=== PATIENT | male | born 1980 | race African-American/Black ===

== ENCOUNTER 2018-07-15 09:41 | Emergency (ER) | payer OTHER ==
[2018-07-15 09:48] VITALS: BP 146/84; PULSE 90; RESP 18; TEMP 98.2
[2018-07-15] MEDS ORDERED: PROPARACAINE 0.5% OPHTH DROPS 15 ML BTL RIGHT EYE STA (10:05)
--- NOTE | 2018-07-15 10:22 | ED ---
Eye Problem HPI - General Chief complaint: Eye Problems Stated complaint: eye injury-[facility] Time Seen by Provider: 07/15/18 09:57 Source: patient Mode of arrival: ambulatory Limitations: no limitations - History of Present Illness Initial comments: 38-year-old male with past history of left retinal detachment presenting today for chief complaint of injury to left eye. 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 Patient denies loss of consciousness. Patient denies foreign body sensation. Patient states he is a slight discomfort and blurring the left eye. Patient has any flash of light, floaters, creatinine revealing of the vision. He denies any vision loss. He denies any decrease in peripheral vision. Patient denies is feeling similar to when he ended retinal detachment in the past. Patient does not wear contact lenses. Pt wears glasses. Patient states was not wearing safety glasses. injury occurred around 8:05AM today. Remainder review of system negative. Upon arrival patient appears well protective eye postures, eyes open, no obvious photophobia. Pt appears well. - Related Data Previous Rx's Medication Instructions Recorded Erythromycin Ophth Oint [Romycin 1 applic LEFT EYE QID 3 Days #1 07/15/18 Ophth Oint] tube Allergies Allergy/AdvReac Type Severity Reaction Status Date / Time No Known Allergies Allergy Verified 07/15/18 10:33 Review of Systems ROS Statement: Those systems with pertinent positive or pertinent negative responses have been documented in the HPI. ROS Other: All systems not noted in ROS Statement are negative. Past Medical History Past Medical History: No Reported History History of Any Multi-Drug Resistant Organisms: None Reported Past Surgical History: Hernia Repair Additional Past Surgical History / Comment(s): left eye surgery Past Psychological History: No Psychological Hx Reported Smoking Status: Current every day smoker Past Alcohol Use History: None Reported Past Drug Use History: None Reported General Exam - General Exam Comments Initial Comments: General: The patient is awake and alert, in no distress, and does not appear acutely ill. Eye: VA OD 20/100, OS 20/200 OU 20/100-without glasses. +3 mm pupils are equal, round and reactive to light, extra-ocular movements are intact. No nystagmus. There is normal conjunctiva bilaterally. No signs of icterus. No subconjunctival hemorrhage. No evidence of foreign body. 2 small areas of uptake upon fluorescein examination at the 11-12 o clock position about size of pencil tip. Negative Pedrito sign. VF intact to confrontation. Limited view of retina due to no dilation. No periorbital soft tissue swelling or ecchymosis. No raccoon or Encarnacion sign. Cardiovascular: There is a regular rate and rhythm. No murmur, rub or gallop is appreciated. Respiratory: Lungs are clear to auscultation, respirations are non-labored, breath sounds are equal. No wheezes, stridor, rales, or rhonchi. Musculoskeletal: Normal ROM, no tenderness. Strength 5/5. Sensation intact. Pulses equal bilaterally 2+. Neurological: A&O x 3. CN II-XII intact, There are no obvious motor or sensory deficits. Coordination appears grossly intact. Speech is normal. Skin: Skin is warm and dry and no rashes or lesions are noted. Psychiatric: Cooperative, appropriate mood & affect, normal judgment. Limitations: no limitations Course Vital Signs 07/15/18 09:45 Temperature 98.2 F Pulse Rate 90 Respiratory 18 Rate Blood Pressure 146/84 O2 Sat by Pulse 96 Oximetry Medical Decision Making - Medical Decision Making well appearing 38-year-old male presenting today for chief complaint of left eye injury. Patient does not have significant photophobia on examination. There is evidence of a corneal abrasion. No evidence of foreign body. Pt started on erythromycin. Pt vision 20/100, 20/150 on the left-previous left sided retinal detachment pt states decreased vision chronic since that event. Negative Pedrito sign. At this time we'll start patient outpatient antibiotics 4 times a day to the left eye. Patient is to follow up closely with ophthalmology. Return parameters as well signs symptoms of retinal detachment or discussed at length the patient verbalized stated. I did have limited views of the retina secondary to no dilation. Patient states he will call ophthalmology office today to schedule appointment. Patient is provided with work note. I did discuss the case with him provider Dr. Lopez who is agreeable with patient plan of care at this time. Pt is aware of return parameters, all questions answered to the best of my ability. Disposition Clinical Impression: Corneal abrasion Disposition: HOME SELF-CARE Condition: Good Instructions (If sedation given, give patient instructions): Corneal Abrasion (ED) Additional Instructions: Please use medication as discussed. Please follow-up with ophthalmology in the next 24-48 hours. Please return to emergency room if the symptoms increase or worsen or for any other concerns, including flashes of light, floaters, vision loss, decreased vision, increasing redness of eye or pain, increased sensitivity to light as discussed. Prescriptions: Erythromycin Ophth Oint [Romycin Ophth Oint] 1 applic LEFT EYE QID 3 Days #1 tube Is patient prescribed a controlled substance at d/c from ED?: No Referrals: None,Stated [Primary Care Provider] - 1-[address] Blanco MD [STAFF PHYSICIAN] - 1-2 days Time of Disposition: 10:22
== END 2018-07-15 10:58 | disposition home or self-care (01) ==
LOC: EC 09:41
DX: S05.02XA Injury of conjunctiva and corneal abrasion without foreign body, left eye, initial encounter (principal); H33.22 Serous retinal detachment, left eye; F17.200 Nicotine dependence, unspecified, uncomplicated; X58.XXXA Exposure to other specified factors, initial encounter; Y92.69 Other specified industrial and construction area as the place of occurrence of the external cause; Y99.0 Civilian activity done for income or pay
CPT/HCPCS: 99282

== ENCOUNTER 2019-02-27 14:07 | Emergency (ER) | payer OTHER ==
[2019-02-27 14:14] VITALS: BP 132/78; PULSE 78; RESP 16; TEMP 98
[2019-02-27] MEDS ORDERED: ACETAMINOPHEN TAB 500 MG TAB PO STA (14:34)
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
[2019-02-27] MEDS ORDERED: DIPH,PERTUS(ACELL)TETVAC-LF 0.5 ML VIAL IM ONE (14:39)
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
== END 2019-02-27 15:56 | disposition home or self-care (01) ==
LOC: EC 14:07
DX: S01.412A Laceration without foreign body of left cheek and temporomandibular area, initial encounter (principal); F17.200 Nicotine dependence, unspecified, uncomplicated; Z53.29 Procedure and treatment not carried out because of patient's decision for other reasons; Y04.8XXA Assault by other bodily force, initial encounter; Y92.89 Other specified places as the place of occurrence of the external cause
CPT/HCPCS: 12011; 70450; 70486; 72125; 99284